=== PATIENT | male | born 1970 | race Caucasian/White ===

== ENCOUNTER 2022-12-16 10:00 | Outpatient (CLI) | payer BC, SELFPAY | END 2022-12-16 10:01 | disposition home or self-care (01) | LOC: SLEEP 12-17 07:38 | PROVIDERS: Family Provider Internal Medicine; Visit Provider Internal Medicine | DX: G47.33 Obstructive sleep apnea (adult) (pediatric) (principal) | CPT/HCPCS: G0399 ==

== ENCOUNTER 2024-11-22 18:18 | Emergency (ER) | payer BC, SELFPAY ==
--- NOTE | 2024-11-22 18:19 | ECG_ITS ---
[facility] Test Date: 2024-11-22 Pat Name: Konstantin Daley Department: Room: Gender: Male Finishing Range Feeder: : 1970 Requested By: Carlo Davis Order Number: [id number] Clement MD: Sam Yuan M.D. Measurements Intervals [place] Rate: 92 P: 38 W[place]: 164 QRS: 40 QRSD: 93 T: 5 QT: 359 QTc: 446 Interpretive Statements SINUS RHYTHM Compared to ECG 10/10/2018 17:12:25 Sinus arrhythmia no longer present Electronically Signed On 11-25-2024 22:04:42 LINK MACHINE OPERATOR by Sam Yuan M.D. [email or web address]
--- NOTE | 2024-11-22 18:19 | XRR_ITS ---
PROCEDURE INFORMATION: Exam: XR Chest Exam date and time: 11/22/2024 6:33 PM Age: 54 years old Clinical indication: Pain; Chest pressure; Additional info: Cp TECHNIQUE: Imaging protocol: Radiologic exam of the chest. Views: 1 view. COMPARISON: No relevant prior studies available. FINDINGS: Lungs: Clear. No consolidation. Pleural spaces: No significant pleural effusion. No pneumothorax. Heart/Mediastinum: Within normal limits. No cardiomegaly. Bones/joints: Intact. Other findings: None. XR/XR chest 1V portable [id number] IMPRESSION: No acute findings.
[2024-11-22 18:26] VITALS: BP 174/110; PULSE 111; RESP 16; TEMP 37; O2SAT 98; BMI 33.0
--- NOTE | 2024-11-22 19:23 | ED_ITS ---
HPI - Abdominal Pain 2 General: Chief Complaint: Abdominal Pain Stated Complaint: Pain Right Side Under Ribs Time Seen by Provider: 11/22/24 18:36 History of Present Illness: Patient presents to the ER with complaints of left upper quadrant abdominal pain in the lateral region. Patient was seen Friday for Rodas for was thought to be femoral hernia on the left side. He had a CT scan done what sounds like his pelvis with contrast today had a swollen lymph node and is put on antibiotics as precaution. Patient's had intermittent fever since then. Worse at night. Today started having a sharp pain underneath his left ribs this is worse with palpation worse with movement. Patient denies any nausea vomiting diarrhea constipation urinary symptoms Related Data Previous Rx's Medication Instructions Recorded cyclobenzaprine 5 mg tablet 5 mg PO TID PRN muscle spasm #14 11/22/24 tabs Allergies Allergy/AdvReac Type Severity Reaction Status Date / Time No Known Allergies Allergy Verified 11/22/24 18:31 Review of Systems 2 General: Reports: 10 or more systems reviewed and unremarkable except in HPI and below Physical Exam 2 Const: COMMON NORMALS: no acute distress, average body habitus, patient oriented x3, no limitations, healthy appearing, alert and well nourished HENMT: COMMON NORMALS: normocephalic, atraumatic, hearing grossly normal bilaterally, external ears normal, Normal external nose present and moist oral mucous membranes HEAD & SCALP: normocephalic and atraumatic NOSE: Normal external nose present EXTERNAL EAR: Yes external ears normal Neck/C-Spine: COMMON NORMALS: no JVD Chest: COMMONS NORMALS: normal inspection of the chest and normal palpation of entire chest wall Resp: COMMON NORMALS: normal respiratory effort, No retractions, No use of accessory muscles and clear to auscultation bilaterally AUSCULTATION: clear to auscultation bilaterally Cardio: COMMON NORMALS: no JVD, regular rhythm, S1 normal heart sound present, S2 normal heart sound present, No gallops present (Cardio), No clicks present (Cardio), No murmurs present (Cardio) and No rub (Cardio); negative for regular rate (Mild tachycardia) RATE: abnormal rate (Mild tachycardia) RHYTHM: regular rhythm HEART SOUNDS: S1 normal heart sound present and S2 normal heart sound present GI: COMMON NORMALS: Normal to inspection, nondistended, normoactive bowel sounds present, Soft to palpation, No hepatosplenomegaly present and no masses; negative for non-tender (Tender to palpate left lateral abdominal area) P ALPATION: Yes Soft to palpation and Yes No hepatosplenomegaly present Neuro: COMMON NORMALS: patient oriented x3 SENSORIUM/ORIENTATION: Yes alert Course 2 Vital Signs: Vital signs: Vital Signs Temperature 98.6 F 11/22/24 18:26 Pulse Rate 91 11/22/24 20:09 Respiratory Rate 18 11/22/24 20:09 Blood Pressure 134/93 11/22/24 20:09 Pulse Oximetry 99 11/22/24 20:09 Oxygen Delivery Me thod Room Air 11/22/24 20:09 MDM - Abdominal Pain Medical Decision Making Lab work including CT scan and ultrasound was reviewed from [place] but showed inflamed left inguinal lymph node otherwise benign. Lab work here as well as chest x-ray and urinalysis was negative. These results was discussed with the patient explained he probably has musculoskeletal pain on the left side of his lateral abdomen and this inflamed lymph node is probably lymph node it is fighting an infection such as a viral infection or bacterial infection and is doing his job. Patient is instructed to continue on the antibiotics and will be placed on a muscle relaxer and told to limit use of his abdominal muscles to help with the healing process. Medical Records I reviewed the patient's medical records. Lab Data I reviewed the patient's lab results. 11/22/24 19:36 11/22/24 19:36 Labs/Radiology: Radiology Impressions Chest X-Ray 11/22/24 18:19 IMPRESSION: No acute findings. Laboratory Results WBC 11.34 10^3/uL (3.29-11.43) 11/22/24 19:36 RBC 4.45 10^6/uL (3.85-5.65) 11/22/24 19:36 Hgb 13.50 g/dL (11.27-16.99) 11/22/24 19:36 Hct 39.9 % (37-53) 11/22/24 19:36 MCV 89.7 fl (82-101) 11/22/24 19:36 MCH 30.3 pg (27-33) 11/22/24 19:36 MCHC 33.8 g/dL (30-55) 11/22/24 19:36 RDW 12.4 % (12.1-15.1) 11/22/24 19:36 Plt Count 249 10^3/cmm (157-399) 11/22/24 19:36 MPV 8.7 fL (7.4-10.4) 11/22/24 19:36 Neut % (Auto) 74.8 % 11/22/24 19:36 Lymph % (Auto) 15.4 % 11/22/24 19:36 Norman % (Auto) 7.1 % 11/22/24 19:36 Eos % (Auto) 1.9 % 11/22/24 19:36 Baso % (Auto) 0.4 % 11/22/24 19:36 Neut # (Auto) 8.47 10^3/uL (1.8-7.7) H 11/22/24 19:36 Lymph # (Auto) 1.8 10^3/uL (0.8-4.8) 11/22/24 19:36 Norman # (Auto) 0.8 10^3/uL (0.2-0.9) 11/22/24 19:36 Eos # (Auto) 0.2 10^3/uL (0.0-0.8) 11/22/24 19:36 Baso # (Auto) 0.0 10^3/uL (0.0-0.1) 11/22/24 19:36 Nucleated RBC % (auto) 0 % 11/22/24 19:36 Nucleated RBCs # 0.0 /100WBC 11/22/24 19:36 Sodium 135 mmol/L (136-145) L 11/22/24 19:36 Potassium 4.1 mmol/L (3.5-5.1) 11/22/24 19:36 Chloride 98 mmol/L (98-107) 11/22/24 19:36 Carbon Dioxide 23 mmol/L (22-29) 11/22/24 19:36 Anion Gap 18.1 (5-19) 11/22/24 19:36 BUN 13 mg/dL (6-20) 11/22/24 19:36 Creatinine 0.8 mg/dL (0.7-1.2) 11/22/24 19:36 GFR Calculation 101.1 mL/min (90-130) 11/22/24 19:36 Glucose 92 mg/dL (65-115) 11/22/24 19:36 Calculated Osmolality 280 mOsm/kg (285-295) L 11/22/24 19:36 Calcium 9.4 mg/dL (8.5-10.5) 11/22/24 19:36 Total Bilirubin 0.3 mg/dL (0.15-1.2) 11/22/24 19:36 AST 14 U/L (0-40) 11/22/24 19:36 ALT 16 U/L (0-41) 11/22/24 19:36 Alkaline Phosphatase 77 U/L (40-130) 11/22/24 19:36 Creatine Kinase 110 U/L (39-308) 11/22/24 19:36 Total Protein 7.9 g/dL (6.6-8.7) 11/22/24 19:36 Albumin 4.2 g/dL (3.5-5.2) 11/22/24 19:36 Globulin 3.7 g/dL (1.3-4.6) 11/22/24 19:36 Lipase 40 U/L (13-60) 11/22/24 19:36 Urine Color Yellow (Yellow) 11/22/24 20:07 Urine Appearance Clear (CLEAR) 11/22/24 20:07 Urine pH 5.5 (5-7) 11/22/24 20:07 Ur Specific [place] 1.013 (1.005-1.030) 11/22/24 20:07 Urine Protein Negative (Negative) 11/22/24 20:07 Urine Glucose (UA) Negative (Normal) 11/22/24 20:07 Urine Ketones Negative (Negative) 11/22/24 20:07 Urine Blood Negative (Negative) 11/22/24 20:07 Urine Nitrate Negative (Negative) 11/22/24 20:07 Urine Bilirubin Negative (Negative) 11/22/24 20:07 Urine Urobilinogen 0.2 mg/dL (Negative) 11/22/24 20:07 Ur Leukocyte Esterase Negative (Negative) 11/22/24 20:07 Urine RBC 0-2 /hpf (0-2) 11/22/24 20:07 Urine WBC 0-5 /hpf (0-5) 11/22/24 20:07 Ur Squamous Epith Cells 0-5 /hpf (0-5) 11/22/24 20:07 Amorphous Sediment Not Reportable 11/22/24 20:07 Urine Bacteria None seen /hpf (NONE) 11/22/24 20:07 Hyaline Casts 0-4 /lpf H 11/22/24 20:07 All radiology interpretation(s) finalized by discharge Discharge Plan Discharge Patient Disposition: Home Clinical Impression: Abdominal wall pain, Inguinal adenopathy Condition: Stable Prescriptions: New cyclobenzaprine 5 mg tablet 5 mg PO TID PRN (Reason: muscle spasm) Qty: 14 0RF Discharge Orders: Discharge ED (Routine); Ordered 11/22/24 Ordered By: Tien Birch Referrals: Sully Kenney [Primary Care Provider] - Patient Instructions: Abdominal Pain (ED), Lymphadenopathy, Musculoskeletal Pain (ED) Activity Restrictions/Additional Instructions: Your evaluation ER that included lab work, chest x-ray, urinalysis, was essentially unremarkable. Your records from [place] was reviewed also they did do a contrasted CT scan of your abdomen pelvis as well as an ultrasound both of these showed that inflamed lymph node and was otherwise unremarkable. Please continue your antibiotics and you will be placed on a muscle relaxer for your left abdominal wall pain. Please follow-up with your family physician within next 7 days for further evaluation and treatment as needed. Coding Level of Care Code ED Dragline Operator Helper for Debbie Garcia
[2024-11-22 19:42] LABS: Basophils % 0.4 %; Eosinophils # 0.2 10^3/uL (0.0-0.8); Eosinophils % 1.9 %; Hematocrit 39.9 % (37-53); Lymphocytes # 1.8 10^3/uL (0.8-4.8); Lymphocytes % 15.4 %; Mean Corpuscular HGB Conc 33.8 g/dL (30-55); Mean Corpuscular Hemoglobin 30.3 pg (27-33); Mean Corpuscular Volume 89.7 fl (82-101); Mean Platelet Volume 8.7 fL (7.4-10.4); Monocytes # 0.8 10^3/uL (0.2-0.9); Monocytes % 7.1 %; Neutrophils # 8.47 10^3/uL (1.8-7.7); Neutrophils % 74.8 %; Nucleated Red Blood Cells % 0 %; Platelet Count 249 10^3/cmm (157-399); Red Blood Count 4.45 10^6/uL (3.85-5.65); Red Cell Distribution Width 12.4 % (12.1-15.1); White Blood Count 11.34 10^3/uL (3.29-11.43)
[2024-11-22 19:58] LABS: Alanine Aminotransferase 16 U/L (0-41); Albumin Level 4.2 g/dL (3.5-5.2); Alkaline Phosphatase 77 U/L (40-130); Anion Gap 18.1 (5-19); Aspartate Amino Transferase 14 U/L (0-40); Blood Urea Nitrogen 13 mg/dL (6-20); Calcium 9.4 mg/dL (8.5-10.5); Carbon Dioxide 23 mmol/L (22-29); Chloride 98 mmol/L (98-107); Creatine Phosphokinase 110 U/L (39-308); Creatinine Clr Calc Pharmacy 129.1865; Globulin 3.7 g/dL (1.3-4.6); Glomerular Filtration Rate 101.1 mL/min (90-130); Glucose 92 mg/dL (65-115); Lipase 40 U/L (13-60); Osmolality Calculated 280 mOsm/kg (285-295); Potassium 4.1 mmol/L (3.5-5.1); Sodium 135 mmol/L (136-145); Total Bilirubin 0.3 mg/dL (0.15-1.2); Total Protein 7.9 g/dL (6.6-8.7)
[2024-11-22 20:09] VITALS: BP 134/93; PULSE 91; RESP 18; O2SAT 99
[2024-11-22 20:20] LABS: Bilirubin Urine Negative (Negative); Blood Urine Negative (Negative); Glucose Urine UA Negative (Normal); Ketones Urine Negative (Negative); Leukocyte Esterase Urine Negative (Negative); Nitrate Urine Negative (Negative); Protein Urine Negative (Negative); Specific Gravity, Urine 1.013 (1.005-1.030); Urine Appearance Clear (CLEAR); Urine Color Yellow (Yellow); Urobilinogen Urine 0.2 mg/dL (Negative); pH Urine 5.5 (5-7)
[2024-11-22 20:23] LABS: Add Urine Microscopic? YES; Bacteria Urine None Seen /hpf; Hyaline Casts Urine 0-4 /lpf; RBC Urine 0-2 /hpf (0-2); Squamous Epithelial Cell Urine 0-5 /hpf (0-5); WBC Urine 0-5 /hpf (0-5)
[2024-11-22 21:19] VITALS: BP 131/90; PULSE 93; RESP 18; O2SAT 98
== END 2024-11-22 21:16 | disposition home or self-care (01) ==
PROVIDERS: Emergency Provider Emergency Medicine; PCP Nurse Practitioner Family
DX: R10.9 Unspecified abdominal pain (principal); R59.0 Localized enlarged lymph nodes
CPT/HCPCS: 36415; 71045; 80053; 81001; 82550; 83690; 85025; 93005; 99285